=== PATIENT | male | born 1955 | race African-American/Black ===

== ENCOUNTER 2019-02-19 12:13 | Emergency (ER) | payer OTHER ==
[~2019-02-19] VITALS: Ht 190.5 cm; Wt 63.6 kg
[~2019-02-19 12:13] MED LIST: ALPR1TAB7 PO; BECL10.6 IH; DRON10CA PO; ETHA400 PO; ISON300 PO; ISON300T17 PO; MARA150T PO; PYRA500 PO; PYRI50 PO; RALT400T PO; RIFAB150 PO; TAMS-1 PO; TIOT4MIS2 IH; TRUVT PO; VALA500T38 PO; ZOLP10TA7 PO
[2019-02-19] MEDS ORDERED: KETOROLAC TROMETHAMINE 30 MG/ML VIAL IVP ONE (13:30)
[2019-02-19] MEDS ORDERED: IOVERSOL 350 MG/ML 100 ML VIAL ONE (13:37)
[2019-02-19] MEDS ORDERED: SODIUM CHLORIDE 0.9% 100 ML ONE (13:37)
[2019-02-19 14:14] LABS: HEMOGLOBIN 15.7 g/dL (13.5-17.5); MEAN CORPUSCULAR HEMOGLOBIN 31.1 pg (26.0-34.0); MEAN CORPUSCULAR HGB CONC 32.7 G/dL (31.0-37.0); MEAN CORPUSCULAR VOLUME 95 fL (80-100); PLATELET COUNT (AUTO) 227 K/uL (150-450); RED BLOOD CELL COUNT(AUTO) 5.04 MIL/uL (4.50-5.90); RED CELL DISTRIBUTION WIDTH 14.9 % (11.5-14.5)
[2019-02-19 14:30] LABS: ANION GAP 11 mmol/L (8-16); CALCIUM, TOTAL 9.3 mg/dL (8.8-10.5); CARBON DIOXIDE 23 mmol/L (22-29); CHLORIDE 104 mmol/L (98-107); CREATININE 1.04 mg/dL (0.60-1.30); GLOMERULAR FILTR. RATE CALC > 60 mL/min (>60); GLUCOSE,RANDOM 68 mg/dL (70-110); POTASSIUM 4.5 mmol/L (3.5-5.1); SODIUM SERUM 138 mmol/L (136-145); UREA NITROGEN, BLOOD 17 mg/dL (7-18)
[2019-02-19 14:35] LABS: BAND NEUTROPHILS % (MANUAL) 1 % (0-5); LYMPHOCYTES % (MANUAL) 67 % (22-44); MONOCYTES % (MANUAL) 4 % (2-9); SEGMENTED NEUTROPHILS % 28 % (40-70)
[2019-02-19 14:36] LABS: ALANINE AMINOTRANSFERASE 30 U/L (12-78); ALKALINE PHOSPHATASE 76 U/L (46-116); ASPARTATE AMINOTRANSFERASE 48 U/L (15-37); BILIRUBIN,TOTAL 0.2 mg/dL (0.1-1.0); TOTAL PROTEIN, SERUM 8.5 g/dL (6.4-8.2)
[2019-02-19 14:39] LABS: B-TYPE NATRIURETIC PEPTIDE 23 pg/mL (0-100)
[2019-02-19 16:07] VITALS: BP 139/79
== END 2019-02-19 16:23 | disposition home or self-care (01) ==
LOC: EMS 12:14
DX: R07.81 Pleurodynia (principal); J40 Bronchitis, not specified as acute or chronic; J44.9 Chronic obstructive pulmonary disease, unspecified; F17.210 Nicotine dependence, cigarettes, uncomplicated; F14.90 Cocaine use, unspecified, uncomplicated; Z88.8 Allergy status to other drugs, medicaments and biological substances
CPT/HCPCS: 36415; 71275; 80053; 83880; 84484; 85025; 93005; 96374; 99285; 99406; J1885; J7050; Q9967

== ENCOUNTER 2025-06-22 14:08 | Inpatient (IN) | payer MEDICARE, OTHER ==
[2025-06-22] VITALS (11 sets, daily range): BP systolic 92–129; BP diastolic 60–77; PULSE 80–88; RESP 15–20; TEMP 98–99; O2SAT 96–99
[~2025-06-22] VITALS: Ht 185.4 cm; Wt 43.5 kg
[~2025-06-22 14:08] MED LIST changes: +ALPR-709 PO; -ALPR1TAB7 PO; +EMTR1TAB53 PO; -ETHA400 PO; +ETHA400T25 PO; -ISON300 PO; -ISON300T17 PO; +ISON300T89 PO; +ISON300T90 PO; +LIDOCAINE/PF 2% 5 ML SYRINGE IVP ONE; +PROPOFOL 1% 20 ML VIAL IVP ONE; -PYRA500 PO; +PYRA500T33 PO; +PYRI-9 PO; -PYRI50 PO; -TAMS-1 PO; +TAMS-55 PO; -TRUVT PO; -VALA500T38 PO; +VALA500T42 PO; +ZOLP-162 PO; -ZOLP10TA7 PO
[2025-06-22] MEDS: PANTOPRAZOLE SODIUM 40 MG/VIAL IVP ONE (14:27)
[2025-06-22 14:49] LABS: RED BLOOD CELL COUNT(AUTO) 2.97 MIL/uL (4.50-5.90); RED CELL DISTRIBUTION WIDTH 20.3 % (11.5-14.5); WHITE BLOOD COUNT (AUTO) 6.1 K/uL (4.5-11.0)
[2025-06-22 14:52] LABS: CALCIUM, TOTAL 8.6 mg/dL (8.8-10.5); CREATININE 2.13 mg/dL (0.60-1.30); GLOMERULAR FILTR. RATE CALC 38 mL/min (>60); GLUCOSE,RANDOM 115 mg/dL (70-110); SODIUM SERUM 136 mmol/L (136-145); UREA NITROGEN, BLOOD 50 mg/dL (7-18)
[2025-06-22 14:56] LABS: ASPARTATE AMINOTRANSFERASE 52.0 U/L (15-37); CREATINE KINASE, TOTAL ONLY 198.0 U/L (39-308); TOTAL PROTEIN, SERUM 8.5 g/dL (6.4-8.2)
[2025-06-22] MEDS: PANTOPRAZOLE SODIUM 80 MG in SODIUM CHLORIDE 0.9% 100 ML IV SCH ×2 (15:00→22:52)
[2025-06-22 15:04] LABS: TROPONIN I-HIGH SENSITIVITY 13 ng/L (<76)
[2025-06-22] MEDS ORDERED: ONDANSETRON HCL 4 MG/2 ML VIAL IVP ONE (15:45)
[2025-06-22 15:51] LABS: COVID AG,FIA SOURCE NASAL SWAB
[2025-06-22 16:10] LABS: PLATELET COUNT (AUTO) 45 K/uL (150-450)
[2025-06-22 16:11] LABS: RBC MORPHOLOGY COMMENT ABNORMAL RBC MORPH
[2025-06-22 16:12] LABS: INFLUENZA TYPE A NEGATIVE FOR TYPE A (NEGATIVE); INFLUENZA TYPE B NEGATIVE FOR TYPE B (NEGATIVE); SARS-COV2 (COVID) ANTIGEN,FIA Negative (Negative)
[2025-06-22] MEDS: OCTREOTIDE ACETATE 500 MCG in SODIUM CHLORIDE 0.9% 97.5 ML IV SCH (17:22)
[2025-06-22] MEDS: OCTREOTIDE ACETATE 100 MCG/ML VIAL IVP ONE (17:22)
[2025-06-22] MEDS ORDERED: MAGNESIUM HYDROXIDE SUSPENSION 30 ML UDCUP PO PRN (18:30)
[2025-06-22] MEDS ORDERED: ACETAMINOPHEN 325 MG TABLET PO PRN (18:30)
[2025-06-22] MEDS ORDERED: ZOLPIDEM TARTRATE 5 MG TABLET PO PRN (18:30)
[2025-06-22] MEDS ORDERED: BISACODYL 10 MG RECTAL RECTAL SUPPOSITORY PR PRN (18:30)
[2025-06-22] MEDS: CefTRIAXone SODIUM 2 GM in DEXTROSE 5%-WATER 50 ML IV ONE (18:33)
[2025-06-22] MEDS: HYDROCODONE/ACETAMINOPHEN 5-325 MG TABLET PO PRN (18:56)
[2025-06-22] MEDS: SODIUM CHLORIDE 0.9% 1,000 ML IV ONE (18:56)
[2025-06-22] MEDS: DOCUSATE SODIUM 100 MG CAPSULE PO SCH (20:03)
[2025-06-22] MEDS: POTASSIUM CHL 10 MEQ/WATER 50 ML IV ONE (21:47)
[2025-06-22] MEDS ORDERED: SODIUM CHLORIDE 0.9% 500 ML IV ONE (22:55)
[2025-06-22] MEDS: MORPHINE SULFATE 4 MG/ML SYRINGE IVP PRN (23:51)
[2025-06-22] MEDS ORDERED: DEXTROSE 5%-0.45% SODIUM CHL 1,000 ML IV PRN (23:55)
[2025-06-23] VITALS (9 sets, daily range): BP systolic 92–102; BP diastolic 61–70; PULSE 74–86; RESP 8–25; TEMP 97.5–99; O2SAT 91–100
[2025-06-23 05:35] LABS: PLATELET COUNT (AUTO) 71 K/uL (150-450); RED BLOOD CELL COUNT(AUTO) 2.99 MIL/uL (4.50-5.90); RED CELL DISTRIBUTION WIDTH 20.3 % (11.5-14.5); WHITE BLOOD COUNT (AUTO) 7.6 K/uL (4.5-11.0)
[2025-06-23 05:39] LABS: CALCIUM, TOTAL 7.7 mg/dL (8.8-10.5); CREATININE 1.68 mg/dL (0.60-1.30); GLOMERULAR FILTR. RATE CALC 50.0 mL/min (>60); GLUCOSE,RANDOM 92.0 mg/dL (70-110); SODIUM SERUM 137.0 mmol/L (136-145); UREA NITROGEN, BLOOD 45.0 mg/dL (7-18)
[2025-06-23 06:19] LABS: RBC MORPHOLOGY COMMENT ABNORMAL RBC MORPH
[2025-06-23] MEDS ORDERED: SODIUM CHLORIDE 0.9% 500 ML IV ONE (06:22)
[2025-06-23] MEDS: DEXTROSE 5%-0.45% SODIUM CHL 1,000 ML IV SCH (08:31)
[2025-06-23] MEDS: PHYTONADIONE 10 MG in SODIUM CHLORIDE 0.9% 50 ML IV ONE (08:31)
[2025-06-23] MEDS: EMTRICITABINE/TENOFOVIR 200-300 MG TABLET PO SCH (08:32)
[2025-06-23] MEDS: POTASSIUM CHLORIDE 20 MEQ ER TABLET PO PRN (08:50)
[2025-06-23] MEDS ORDERED: PANTOPRAZOLE SODIUM 40 MG DR TABLET PO SCH (09:00)
[2025-06-23] MEDS: ONDANSETRON HCL 4 MG/2 ML VIAL IVP PRN (12:38)
[2025-06-23] MEDS ORDERED: NALOXONE HCL 0.4 MG/ML VIAL ONE (14:27)
[2025-06-23] MEDS ORDERED: FLUMAZENIL 0.1 MG/ML 5 ML VIAL IVP ONE (14:27)
[2025-06-23] MEDS ORDERED: SODIUM TETRADECYL SULFATE 3% 60 MG/2 ML VIAL IVP ONE (14:27)
[2025-06-23] MEDS ORDERED: ATROPINE SULFATE 0.1 MG/ML 10 ML SYRINGE IVP ONE (14:28)
[2025-06-23] MEDS ORDERED: EPINEPHrine 1:10,000 [1 MG/10 ML] SYRINGE ONE (14:28)
[2025-06-23 18:33] LABS: PLATELET COUNT (AUTO) 50 K/uL (150-450); RED BLOOD CELL COUNT(AUTO) 3.52 MIL/uL (4.50-5.90); RED CELL DISTRIBUTION WIDTH 20.7 % (11.5-14.5); WHITE BLOOD COUNT (AUTO) 7.4 K/uL (4.5-11.0)
[2025-06-23 18:51] LABS: RBC MORPHOLOGY COMMENT ABNORMAL RBC MORPH
[2025-06-23] MEDS: PANTOPRAZOLE SODIUM 40 MG/VIAL IVP SCH (21:03)
[2025-06-23] MEDS: POTASSIUM CHL 10 MEQ/WATER 50 ML IV PRN (23:28)
[2025-06-24] VITALS (13 sets, daily range): BP systolic 80–106; BP diastolic 54–75; PULSE 65–78; RESP 12–17; TEMP 97.8–98.8; O2SAT 92–96
[2025-06-24] MEDS ORDERED: SODIUM CHLORIDE 0.9% 500 ML IV ONE (00:30)
[2025-06-24 08:06] LABS: PLATELET COUNT (AUTO) 33 K/uL (150-450); RED BLOOD CELL COUNT(AUTO) 3.31 MIL/uL (4.50-5.90); RED CELL DISTRIBUTION WIDTH 20.4 % (11.5-14.5); WHITE BLOOD COUNT (AUTO) 6.5 K/uL (4.5-11.0)
[2025-06-24 08:07] LABS: CALCIUM, TOTAL 7.9 mg/dL (8.8-10.5); CREATININE 1.45 mg/dL (0.60-1.30); GLOMERULAR FILTR. RATE CALC 59.0 mL/min (>60); GLUCOSE,RANDOM 124.0 mg/dL (70-110); SODIUM SERUM 138.0 mmol/L (136-145); UREA NITROGEN, BLOOD 34.0 mg/dL (7-18)
[2025-06-24 08:08] LABS: RBC MORPHOLOGY COMMENT ABNORMAL RBC MORPH
[2025-06-24 08:11] LABS: PHOSPHORUS 2.9 mg/dL (2.5-4.9)
[2025-06-24] MEDS: MULTIVITAMINS, THERAPEUTIC TABLET PO SCH (08:56)
[2025-06-24] MEDS: THIAMINE 100 MG TABLET PO SCH (08:56)
[2025-06-24] MEDS ORDERED: SODIUM CHLORIDE 0.9% 250 ML IV ONE ×2 (14:44→17:07)
[2025-06-24] MEDS: PHYTONADIONE 10 MG/ML VIAL PO SCH (21:45)
[2025-06-25] MEDS ORDERED: SODIUM CHLORIDE 0.9% 1,000 ML ONE (00:02)
[2025-06-25] MEDS: OxyCODONE HCL 5 MG IR TABLET PO ONE (00:06)
[2025-06-25] MEDS: SODIUM CHLORIDE 0.9% 1,000 ML IV ONE (00:06)
[2025-06-25 00:52] VITALS: BP 94/64; PULSE 71; RESP 16; TEMP 97.5; O2SAT 97
[2025-06-25 03:15] VITALS: BP 92/74; PULSE 76; RESP 15; TEMP 98.1; O2SAT 99
[2025-06-25 08:49] VITALS: BP 89/65; PULSE 79; RESP 20; TEMP 97.2; O2SAT 96
[2025-06-25 09:36] LABS: RED BLOOD CELL COUNT(AUTO) 3.48 MIL/uL (4.50-5.90); RED CELL DISTRIBUTION WIDTH 20.9 % (11.5-14.5); WHITE BLOOD COUNT (AUTO) 5.7 K/uL (4.5-11.0)
[2025-06-25 09:40] LABS: CALCIUM, TOTAL 7.9 mg/dL (8.8-10.5); CREATININE 1.11 mg/dL (0.60-1.30); GLOMERULAR FILTR. RATE CALC > 60 mL/min (>60); GLUCOSE,RANDOM 105 mg/dL (70-110); SODIUM SERUM 141 mmol/L (136-145); UREA NITROGEN, BLOOD 27 mg/dL (7-18)
[2025-06-25 09:48] LABS: PHOSPHORUS 2.4 mg/dL (2.5-4.9)
[2025-06-25 09:55] LABS: PLATELET COUNT (AUTO) 36 K/uL (150-450); PLATELET MORPHOLOGY COMMENT LARGE PLTS PRESENT; RBC MORPHOLOGY COMMENT ABNORMAL RBC MORPH
[2025-06-25 12:21] VITALS: BP 97/74; PULSE 74; RESP 18; TEMP 97.5; O2SAT 91
== END 2025-06-25 15:15 | disposition left against medical advice (07) | DRG 368 ==
LOC: EMS 14:46 → EDH 15:48 → ICU 20:45 → 5N 06-24 14:00
PROVIDERS: ADMIT Internal Medicine; ATTEND Internal Medicine
PROC: 30233N1 Transfusion of Nonautologous Red Blood Cells into Peripheral Vein, Percutaneous Approach (ICD-10-PCS; 2025-06-22)
PROC: 30233R1 Transfusion of Nonautologous Platelets into Peripheral Vein, Percutaneous Approach (ICD-10-PCS; 2025-06-22)
PROC: 0DJ08ZZ Inspection of Upper Intestinal Tract, Via Natural or Artificial Opening Endoscopic (ICD-10-PCS; principal; 2025-06-23 15:00)
PROC: 30233K1 Transfusion of Nonautologous Frozen Plasma into Peripheral Vein, Percutaneous Approach (ICD-10-PCS; 2025-06-24)
DX: K20.91 Esophagitis, unspecified with bleeding (principal); K25.4 Chronic or unspecified gastric ulcer with hemorrhage; R57.1 Hypovolemic shock; D68.9 Coagulation defect, unspecified; C34.90 Malignant neoplasm of unspecified part of unspecified bronchus or lung; D69.6 Thrombocytopenia, unspecified; J44.9 Chronic obstructive pulmonary disease, unspecified; F20.9 Schizophrenia, unspecified; D50.0 Iron deficiency anemia secondary to blood loss (chronic); Z20.822 Contact with and (suspected) exposure to COVID-19; F19.10 Other psychoactive substance abuse, uncomplicated; N40.0 Benign prostatic hyperplasia without lower urinary tract symptoms; F17.200 Nicotine dependence, unspecified, uncomplicated; F14.90 Cocaine use, unspecified, uncomplicated; Z86.15 Personal history of latent tuberculosis infection; Z85.028 Personal history of other malignant neoplasm of stomach; Z53.29 Procedure and treatment not carried out because of patient's decision for other reasons
CPT/HCPCS: 71045; 80048; 80076; 82550; 83690; 83735; 83880; 84100; 84132; 84484; 85025; 85610; 85730; 86850; 86900; 86901; 86923; 86927; 87081; 87804; 93005; 96361; 96365; 96367; 96368; 96375; 99291; J0169; J0461; J0696; J1200; J2270; J2312; J2354; J2405; J2470; J2704; J3430; J3480; J3490; J7030; J7040; J7050; J7060; P9016; P9017; P9035; 36415-L1; 36415-TC